=== PATIENT | female | born 1960 | race Hispanic/Latino ===

== ENCOUNTER 2017-09-22 15:31 | Emergency (ER) | payer OTHER ==
[~2017-09-22] VITALS: Ht 157.5 cm; Wt 108.9 kg
[~2017-09-22 15:31] MED LIST: HYDROCHLOROTH12.5 M3 PO; MOBIC15 M1 PO; NORCO 5-325 TA1 EACH PO
[2017-09-22 15:51] VITALS: BP 169/84
--- NOTE | 2017-09-22 15:53 | ED INFLUENZA/URI COMPLAINT ---
History of Present Illness General Chief Complaint: Upper Respiratory Sx/Fever Stated Complaint: COUGH X 3WEEKS Source: patient Exam Limitations: no limitations Vital Signs & Intake/Output Vital Signs & Intake/Output Vital Signs Date Time Temp Pulse Resp B/P B/P Pulse O2 O2 Flow FiO2 Mean Ox Delivery Rate 09/22 1734 88 96 Room Air 09/22 1551 98.6 81 20 169/84 96 Room Air Room Air Allergies Coded Allergies: NO KNOWN ALLERGIES (03/03/12) Reconcile Medications Albuterol Sulfate (Proair Hfa) 90 MCG HFA.AER.AD 2 PUF INH Q4-6 PRN PRN SOB Azithromycin (Zithromax) 250 MG TABLET 1 DP PO AD BRONCHITIS 2 the first day followed by 1 for days 2-5 Hydrochlorothiazide 12.5 MG CAPSULE 1 CAP PO DAILY BP (Reported) Hydrocodone/Acetaminophen ([place] 5-325 Tablet) 1 EACH TABLET 1 TAB PO TIDPRN PRN pain Meloxicam (Mobic) 15 MG TABLET 1 TAB PO DAILY PRN inflammation Meloxicam (Mobic) 15 MG TABLET 1 TAB PO DAILY PRN pain Prednisone 10 MG TABLET 1 TAB PO DAILY BRONCHITIS 4 TABS PO X 3 DAYS, 3 TABS PO X 3 DAYS, 2 TABS PO X 3 DAYS, 1 TAB PO X 3 DAYS Triage Note: TRIAGE: 57 Y/O FEMALE PRESENTS C/O COUGH X 1 MONTH. DIAGNOSED WITH FLU ON 09/12; TAMIFLU TAKEN ALREADY. AFEBRILE IN TRIAGE. Triage Nurses Notes Reviewed? yes Onset: Gradual Duration: week(s): (3) Timing: remote history Severity: moderate Severity Numbers: 8 Prior Episodes/Possible Cause: occassional episodes No Modifying Factors: none Associated Symptoms: cough HPI: Patient is a 57-year-old female presenting to the emergency department with chief complaint of intermittent productive cough that [place] for the past 3-4 weeks. She was diagnosed with influenza at the time of the cough starting. She is treated with Tamiflu. Denies any continued fevers or chills but does report continued cough. Positive postnasal drip and sinus congestion. No sick contacts or recent travel. She's been taking cough syrup and Tessalon Perles with little to no relief. She reports that she hears herself wheezing, denies history of asthma. (Clarissa Kendall) Past History Travel History Traveled to [place] past 21 day No Medical History Any Pertinent Medical History? see below for history Cardiovascular: hypertension Musculoskeletal: L KNEE MENISCAL TEAR Other Medical Hx: OBESITY Surgical History Surgical History: L KNEE DSA Psychosocial History What is your primary language Slovenian Tobacco Use: Never used ETOH Use: denies use Illicit Drug Use: denies illicit drug use Family History Hx Contributory? No (Clarissa Kendall) Review of Systems Review of Systems Constitutional: Reports: see HPI. Comments Review of systems: See HPI, All other systems negative. Constitutional, no chills fever or weight loss HEENT: No visual changes no sore throat Cardiovascular: No chest pain ,palpitation , orthopnea or ankle swelling Skin, no jaundice no rashes Respiratory: No dyspnea OR hemoptysis GI: No nausea no vomiting : No dysuria No hematuria Muscle skeletal: no back pain, no neck pain, Neurologic: No numbness no confusion, no headaches Psych: No stress anxiety or depression,. Heme/endocrine: No bruising no bleeding no polyuria or polydipsia Immunology: No splenectomy or history of AIDS (Clarissa Kendall) Physical Exam Physical Exam General Appearance: well developed/nourished, no apparent distress, alert, awake , comfortable Ears, Nose, Throat: nasal congestion, nasal drainage, Tympanic bulging Comments: Well-developed well-nourished person in no acute distress HEENT: Pupils equally round and reactive to light and accommodation. Nose is atraumatic. External auditory canal are clear bilaterally, tympanic membranes are erythematous and bulging bilaterally. Positive fluid level. Pharynx normal. No swelling or edema. Neck: Supple, no lymphadenopathy, normal range of motion without pain or tenderness Cardiovascular: Regular rate and rhythms no murmurs rubs or gallops Respiratory: No respiratory distress. Diffuse SCANT wheezing to auscultation bilaterally Extremity: No edema Neuro: Alert oriented x3 Skin: No appreciable rash on exposed skin, skin is warm and dry. Psych: Mood and affect is normal, memory and judgment is normal. Core Measures Sepsis Present: No Sepsis Focused Exam Completed? No (Clarissa Kendall) Progress Differential Diagnosis: influenza, pneumonia, pharyngitis, sinusitis, OTITIS MEDIA Plan of Care: Orders Procedure Date/time Status XRY-CHEST XRAY, TWO VIEWS 09/22 1550 Active Diagnostic Imaging: Viewed by Me: Radiology Read. Discussed w/RAD: Radiology Read. Radiology Impression: PATIENT: MICHELLE SALAZAR PRESENT AGE: 57 PATIENT ACCOUNT NO: [id number] : 60 LOCATION: [facility] ORDERING PHYSICIAN: Clarissa EDGAR SERVICE DATE: 09/22/17-1550 EXAM TYPE: RAD - XRY-CHEST XRAY, TWO VIEWS EXAMINATION: XR CHEST CLINICAL INFORMATION : Cough x2 weeks COMPARISON: 05/16/2017 TECHNIQUE: 2 views of the chest were obtained. FINDINGS: Minimal biapical pleural-parenchymal thickening is stable. The cardiac silhouette is unchanged compared to previous. The lungs are clear without consolidation or effusion. No pneumothorax. Visualized osseous structures appear intact. IMPRESSION: No pneumonia. DICTATED BY: Shari Millan MD DATE/TIME DICTATED:09/22/171720 WINDER HELPER:TAYLER DATE/TIME TRANSCRIBED:09/22/171720 CONFIDENTIAL, DO NOT COPY WITHOUT APPROPRIATE AUTHORIZATION. <Electronically signed in Other Vendor System> SIGNED BY: Shari Millan MD 09/22/171724 Initial ED EKG: none (Clarissa Kendall) Departure Departure Time of Disposition: 1720 Disposition: HOME OR SELF CARE Condition: Stable Clinical Impression Primary Impression: Bronchitis Secondary Impressions: Otitis media Qualifiers: Otitis media type: unspecified Chronicity: acute Qualified Code: H66.90 - Otitis media, unspecified, unspecified ear Referrals: Maura Cunha APRN (PCP/Family) Additional Instructions: Follow-up with the primary care physician in the next 5-7 days. Take antibiotics, prednisone taper and use albuterol inhaler as directed. Return for worsening symptoms or concerns. Departure Forms: Customer Survey General Discharge Information Prescriptions: Current Visit Scripts Azithromycin (Zithromax) 1 DP PO AD #6 TAB 2 the first day followed by 1 for days 2-5 Prednisone 1 TAB PO DAILY #30 TAB 4 TABS PO X 3 DAYS, 3 TABS PO X 3 DAYS, 2 TABS PO X 3 DAYS, 1 TAB PO X 3 DAYS Albuterol Sulfate (Proair Hfa) 2 PUF INH Q4-6 PRN PRN SOB #1 INHAL (Clarissa Kendall) PA/SILO MAN Co-Sign Statement Statement: ED Attending supervision documentation- [] I saw and evaluated the patient. I have also reviewed all the pertinent lab results and diagnostic results. I agree with the findings and the plan of care as documented in the PA's/SILO MAN's documentation. [x] I have reviewed the ED Record and agree with the PA's/SILO MAN's documentation. [] Additions or exceptions (if any) to the PAs/SILO MAN's note and plan are summarized below: [] (Kodi Crum DO)
--- NOTE | 2017-09-22 17:25 | RADIOLOGY REPORT ---
EXAMINATION: XR CHEST CLINICAL INFORMATION: Cough x2 weeks COMPARISON: 05/16/2017 TECHNIQUE: 2 views of the chest were obtained. FINDINGS: Minimal biapical pleural-parenchymal thickening is stable. The cardiac silhouette is unchanged compared to previous. The lungs are clear without consolidation or effusion. No pneumothorax. Visualized osseous structures appear intact. IMPRESSION: No pneumonia.
[2017-09-22] MEDS ORDERED: PREDNISONE10 M2 PO (17:30)
[2017-09-22] MEDS ORDERED: PROAIR HFA8.5 GM INH (17:30)
[2017-09-22] MEDS ORDERED: ZITHROMAX250 M2 PO (17:30)
== END 2017-09-22 17:33 ==
LOC: ERH 15:31
DX: J40 Bronchitis, not specified as acute or chronic (principal); H66.90 Otitis media, unspecified, unspecified ear
CPT/HCPCS: 71046